=== PATIENT | female | born 1950 | race Caucasian/White ===

== ENCOUNTER 2018-04-21 07:09 | Emergency (ER) | payer OTHER, MEDICARE ==
[~2018-04-21] VITALS: Ht 167.6 cm; Wt 59.0 kg
[2018-04-21] MEDS ORDERED: ONDANSETRON 4 MG (ZOFRAN) ORAL DISSOLVE TAB ONE ×2 (07:32)
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
[2018-04-21] MEDS ORDERED: HYDROcodone/APAP 5 MG/325 MG (LORTAB) TAB PO ONE (07:45)
[2018-04-21] MEDS ORDERED: ONDANSETRON 8 MG (ZOFRAN) ORAL DISSOLVE TAB PO ONE (07:45)
[2018-04-21] MEDS ORDERED: AMIT25TA9 (08:08)
[2018-04-21] MEDS ORDERED: LEVO50TA6 (08:08)
[2018-04-21] MEDS ORDERED: CITA20TA9 (08:08)
[2018-04-21] MEDS ORDERED: OXYB5TAB9 (08:08)
[2018-04-21] MEDS ORDERED: MELO7.5T46 (08:08)
[2018-04-21] MEDS ORDERED: CALC-308 PO (08:10)
[2018-04-21] MEDS ORDERED: FERR-84 PO (08:10)
[2018-04-21] MEDS ORDERED: MULT-834 PO (08:11)
[2018-04-21] MEDS ORDERED: AMOX250C PO (08:14)
[2018-04-21] MEDS ORDERED: ESTR10TA9 VG (08:14)
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
[2018-04-21 09:24] VITALS: BP 173/74
== END 2018-04-21 09:15 | disposition home or self-care (01) ==
LOC: EDUNIT# 07:09 → ER FS 07:12
DX: S16.1XXA Strain of muscle, fascia and tendon at neck level, initial encounter (principal); S20.219A Contusion of unspecified front wall of thorax, initial encounter; S50.12XA Contusion of left forearm, initial encounter; Z88.2 Allergy status to sulfonamides; V49.40XA Driver injured in collision with unspecified motor vehicles in traffic accident, initial encounter
CPT/HCPCS: 71046; 72125; 73030; 73090; 93005

== ENCOUNTER 2018-06-14 10:53 | Outpatient (RCR) | payer MEDICARE, OTHER ==
[~2018-06-14 10:53] MED LIST: AMIT25TA9; AMOX250C PO; CALC-308 PO; CITA20TA9; ESTR10TA9 VG; FERR-84 PO; LEVO50TA6; MELO7.5T46; MULT-834 PO; OXYB5TAB9
== END 2018-06-14 11:57 | disposition home or self-care (01) ==
PROVIDERS: ATTEND Orthopaedic Surgery Orthopaedic Trauma
DX: S13.4XXA Sprain of ligaments of cervical spine, initial encounter (principal); V49.40XA Driver injured in collision with unspecified motor vehicles in traffic accident, initial encounter

== ENCOUNTER 2018-12-24 05:40 | Outpatient (CLI) | payer MEDICARE ==
[~2018-12-24] VITALS: Ht 167 cm; Wt 65.9 kg
[2018-12-24] MEDS ORDERED: AMIT25TA9 PO (11:57)
[2018-12-24] MEDS ORDERED: ESTR-44 TD (11:57)
[2018-12-24] MEDS ORDERED: LEVO50TA6 PO (11:57)
[2018-12-24] MEDS ORDERED: CYCL10TA9 PO (11:57)
[2018-12-24] MEDS ORDERED: CALC-308 PO (11:57)
[2018-12-24] MEDS ORDERED: MELO15TA14 PO (11:57)
[2018-12-24] MEDS ORDERED: CITA20TA12 PO (11:57)
[2018-12-24] MEDS ORDERED: OXYB5TAB9 PO (11:57)
== END 2018-12-24 11:59 | disposition home or self-care (01) ==
LOC: PREOP 05:40
PROVIDERS: ATTEND Surgery
DX: Z01.818 Encounter for other preprocedural examination (principal)

== ENCOUNTER 2018-12-31 09:14 | Day surgery (SDC) | payer MEDICARE, OTHER ==
[~2018-12-31] VITALS: Ht 167 cm; Wt 65.9 kg
[~2018-12-31 09:14] MED LIST changes: +AMIT25TA9 PO; +CITA20TA12 PO; +CYCL10TA9 PO; +ESTR-44 TD; +LEVO50TA6 PO; +MELO15TA14 PO; +OXYB5TAB9 PO
[2018-12-31] MEDS ORDERED: LACTATED RINGERS 1,000 ML IV ONE (09:39)
[2018-12-31] MEDS ORDERED: LACTATED RINGERS 1,000 ML IV STA (09:44)
[2018-12-31 09:55] VITALS: BP 121/72
[2018-12-31] MEDS ORDERED: ESTR10TA9 VG (11:00)
[2018-12-31] MEDS ORDERED: PROPOFOL INJECTION 50 ML IV ONE (11:50)
[2018-12-31] MEDS ORDERED: MIDAZOLAM 2 MG/2 ML (VERSED) VIAL ONE (11:50)
--- NOTE | 2018-12-31 12:04 | Progress Note-Pre Operative ---
Pre-Operative Progress Note H&P Reviewed The H&P was reviewed, patient examined and no changes noted. Time Seen by Provider: 12:02 Date H&P Reviewed: Dec 31, 2018 Time H&P Reviewed: 12:01 Pre-Operative Diagnosis: screening colonoscopy AMALIA WASHINGTON DO Dec 31, 2018 12:04 POS
[2018-12-31 12:30] VITALS: BP 144/67
--- NOTE | 2018-12-31 12:34 | Progress Note-Post Operative ---
Post-Operative Progess Note Surgeon (s)/Commercial Driver'S License Driver (s) Surgeon AMALIA WASHINGTON DO Commercial Driver'S License Driver: MISSAEL Oliver Pre-Operative Diagnosis screening colonoscopy Post-Operative Diagnosis int hemorrhoids Procedure & Operative Findings Date of Procedure 12/31/18 Procedure Performed/Findings colon Anesthesia Type IV sedation by [employer] Estimated Blood Loss Estimated blood loss (mL): none Specimens/Packing Specimens Removed none AMALIA WASHINGTON DO Dec 31, 2018 12:34 POS
[2018-12-31 12:35] VITALS: BP 169/72
--- NOTE | 2018-12-31 12:35 | Endoscopy Discharge Instruct ---
Endo Procedure/Findings Findings 1.: Internal Hemorrhoids Discharge Instructions - Activity: You might feel a little sleepy until tomorrow. This is due to the me dicine you received to relax you. Until tomorrow, you should: NOT drive a car, operate machinery or power tools. NOT drink any alcoholic beverages. NOT make any important decisions or sign importortant papers. Do not return to work until tomorrow, unless otherwise instructed. Resume previous activities tomorrow. Diet: Start by taking liquids. If you tolerate liquids, advance to solid food. make an appointment for one week 1.: Colonscopy in 10 years Notify Physician - If you experience excessive bleeding, unusual abdominal pain, fever, or chest pain, contact your doctor immediately. AMALIA WASHINGTON DO Dec 31, 2018 12:35 POS
[2018-12-31 13:05] VITALS: BP 148/98
--- NOTE | 2018-12-31 13:11 | Anesthesia-General Post-Op ---
MAC Patient Condition Mental Status/LOC: Same as Preop Cardiovascular: Satisfactory Nausea/Vomiting: Absent Respiratory: Satisfactory Pain: Controlled Complications: Absent Post Op Complications Complications None Follow Up Care/Instructions Patient Instructions None needed. Anesthesiology Discharge Order Discharge Order Patient is doing well, no complaints, stable vital signs, no apparent adverse anesthesia problems. No complications reported per nursing. TRAE RAIN CRNA Dec 31, 2018 13:11 POS
[2018-12-31 13:25] VITALS: BP 148/98
--- NOTE | 2018-12-31 19:05 | OPERATIVE REPORT ---
DATE OF SERVICE: 12/31/2018 PREOPERATIVE DIAGNOSIS: Screening colonoscopy. POSTOPERATIVE DIAGNOSIS: Internal hemorrhoids. PROCEDURE: Colonoscopy. SURGEON: Pancho Porter DO CARDIOTHORACIC ANESTHESIA TECHNICIAN: Mayra Loving MS3 SPECIMENS: None. BLOOD LOSS: None. FLUIDS: Per anesthesia. POSTOPERATIVE CONDITION: Stable. INDICATION FOR PROCEDURE: The patient is a 68-year-old female, who has never had a colonoscopy, needs one for screening. FINDINGS: The patient had some internal hemorrhoids, but no other obvious pathology. PROCEDURE NOTE: After informed consent was obtained, the patient was brought to the endoscopy suite and placed in bed in the left lateral decubitus position. She was administered IV sedation by the RIVET TESTER, who then monitored her vitals the entire time, heart rate, blood pressure and pulse ox and the scope was inserted, pushed all the way about 140 cm, able to get to the cecum, took a picture of the appendiceal orifice, noted the ileocecal valve and then slowly withdrew the scope, insufflating to look circumferentially at the venegas looking at the cecum, up the ascending colon to the hepatic flexure, then down the transverse colon to the splenic flexure, into the descending colon, down into the sigmoid and finally into the rectum, retroflexed the rectal vault, saw some minimal internal hemorrhoids. No other obvious pathology. Scope was removed. The patient tolerated the procedure, recovered in endoscopy suite. Job ID: [id number] DocumentID: [id number] Dictated Date: 12/31/2018 12:33:51 Ethical Hacker Date: 12/31/2018 19:04:26 Dictated By: PANCHO PORTER DO
== END 2018-12-31 13:25 | disposition home or self-care (01) ==
LOC: ENDO 09:14
PROVIDERS: ATTEND Surgery
DX: Z12.11 Encounter for screening for malignant neoplasm of colon (principal); K64.8 Other hemorrhoids; E03.9 Hypothyroidism, unspecified; I10 Essential (primary) hypertension; F41.9 Anxiety disorder, unspecified; Z88.2 Allergy status to sulfonamides; Z79.899 Other long term (current) drug therapy; Z87.891 Personal history of nicotine dependence; Z90.710 Acquired absence of both cervix and uterus; Z90.89 Acquired absence of other organs; Z80.0 Family history of malignant neoplasm of digestive organs; Z83.79 Family history of other diseases of the digestive system
CPT/HCPCS: G0105

== ENCOUNTER 2022-08-11 19:07 | Emergency (ER) | payer MEDICARE ==
[~2022-08-11] VITALS: Ht 165.1 cm; Wt 72.0 kg
[~2022-08-11 19:07] MED LIST changes: +CYCL10TA25 PO; -CYCL10TA9 PO; +OXYB5TAB13; +OXYB5TAB13 PO; -OXYB5TAB9; -OXYB5TAB9 PO
[2022-08-11] MEDS ORDERED: TETANUS,DIPTH,PERTUSS P/F (BOOSTRIX) 0.5 ML VIAL IM ONE (19:15)
[2022-08-11 19:34] LABS: BASOPHILS % (AUTO) 1 % (0-10); BILIRUBIN,URINE NEGATIVE (NEGATIVE); CLARITY,URINE CLEAR; COLOR,URINE YELLOW; EOSINOPHILS # (AUTO) 0.1 10^3/uL (0.0-0.3); EOSINOPHILS % (AUTO) 2 % (0-10); GLUCOSE, URINE (UA) NEGATIVE (NEGATIVE); HEMATOCRIT 43 % (35-52); HEMOGLOBIN 14.2 g/dL (11.5-16.0); KETONES,URINE NEGATIVE (NEGATIVE); LEUKOCYTE ESTERASE ,URINE NEGATIVE (NEGATIVE); LYMPHOCYTES # (AUTO) 0.9 10^3/uL (1.0-4.0); LYMPHOCYTES % (AUTO) 17 % (12-44); MEAN CORPUSCULAR HEMOGLOBIN 30 pg (25-34); MEAN CORPUSCULAR HGB CONC 33 g/dL (32-36); MEAN CORPUSCULAR VOLUME 90 fL (80-99); MEAN PLATELET VOLUME 9.4 fL (9.0-12.2); MONOCYTES # (AUTO) 0.5 10^3/uL (0.0-1.0); MONOCYTES % (AUTO) 10 % (0-12); NEUTROPHILS # (AUTO) 3.8 10^3/uL (1.8-7.8); NEUTROPHILS % (AUTO) 71 % (42-75); NITRITE,URINE NEGATIVE (NEGATIVE); PH,URINE 7.5 (5-9); PLATELET COUNT 218 10^3/uL (130-400); PROTEIN,URINE 1+ (NEGATIVE); WHITE BLOOD COUNT 5.4 10^3/uL (4.3-11.0)
[2022-08-11 19:44] LABS: BACTERIA,URINE FEW /HPF; RBC,URINE RARE /HPF; WBC,URINE RARE /HPF
[2022-08-11 19:53] LABS: AMPHETAMINE SCREEN, URINE NEGATIVE (NEGATIVE); BARBITURATE SCREEN URINE NEGATIVE (NEGATIVE); BENZODIAZEPINES SCREEN URINE POSITIVE (NEGATIVE); CANNABINOID SCREEN, URINE NEGATIVE (NEGATIVE); COCAINE SCREEN URINE NEGATIVE (NEGATIVE); METHADONE STAT NEGATIVE (NEGATIVE); OPIATE SCREEN URINE NEGATIVE (NEGATIVE); OXYCODONE STAT NEGATIVE (NEGATIVE); PROPOXYPHENE STAT NEGATIVE (NEGATIVE); TRICYCLIC ANTIDEPRESSANTS SCRE NEGATIVE (NEGATIVE)
[2022-08-11 19:59] LABS: ALANINE AMINOTRANSFERASE 37 U/L (0-55); ALBUMIN 4.4 GM/DL (3.2-4.5); ALKALINE PHOSPHATASE 61 U/L (40-136); BILIRUBIN,TOTAL 0.6 MG/DL (0.1-1.0); BUN/CREATININE RATIO 15; CALCIUM 9.5 MG/DL (8.5-10.1); CARBON DIOXIDE 23 MMOL/L (21-32); CHLORIDE 105 MMOL/L (98-107); GFR ESTIMATED 61; GLUCOSE 127 MG/DL (70-105); POTASSIUM 3.8 MMOL/L (3.6-5.0); SALICYLATE < 5.0 MG/DL (5.0-20.0); SODIUM 138 MMOL/L (135-145)
[2022-08-11 20:03] LABS: ACETAMINOPHEN < 10 UG/ML (10-30)
[2022-08-11] MEDS ORDERED: ACETAMINOPHEN 500 MG TAB (TYLENOL) PO ONE (22:15)
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
[2022-08-12] MEDS ORDERED: IBUPROFEN 800 MG (MOTRIN) TAB PO ONE (00:15)
[2022-08-12] MEDS ORDERED: DONEPEZIL 10 MG (ARICEPT) TAB PO SCH (03:00)
[2022-08-12] MEDS ORDERED: ACETAMINOPHEN 500 MG TAB (TYLENOL) PO ONE (08:15)
[2022-08-12 10:59] VITALS: BP 136/74
== END 2022-08-12 11:04 ==
LOC: EDUNIT# 19:07 → ER 19:09
DX: S61.512A Laceration without foreign body of left wrist, initial encounter (principal); S61.511A Laceration without foreign body of right wrist, initial encounter; F41.9 Anxiety disorder, unspecified; R25.2 Cramp and spasm; Z23 Encounter for immunization; Z20.822 Contact with and (suspected) exposure to COVID-19; X78.8XXA Intentional self-harm by other sharp object, initial encounter
CPT/HCPCS: 80053; 80306; 81000; 84443; 85025; 87636; 93005; 99284; G0480 ×3; 36415; 80320; 80329; 90715

== ENCOUNTER 2022-11-16 19:26 | Emergency (ER) | payer OTHER, MEDICARE ==
[~2022-11-16] VITALS: Ht 163 cm; Wt 64.0 kg
[2022-11-16] MEDS ORDERED: morphine INJ 10 MG/ML 1ML (SYR OR VIAL) IVP STA (19:33)
[2022-11-16] MEDS ORDERED: morphine INJ 4 MG/ML 1 ML (VIAL/SYRINGE) ONE (19:33)
[2022-11-16 19:39] LABS: BASOPHILS % (AUTO) 1 % (0-10); EOSINOPHILS # (AUTO) 0.2 10^3/uL (0.0-0.3); EOSINOPHILS % (AUTO) 3 % (0-10); HEMATOCRIT 39 % (35-52); HEMOGLOBIN 12.9 g/dL (11.5-16.0); LYMPHOCYTES # (AUTO) 1.9 10^3/uL (1.0-4.0); LYMPHOCYTES % (AUTO) 40 % (12-44); MEAN CORPUSCULAR HEMOGLOBIN 31 pg (25-34); MEAN CORPUSCULAR HGB CONC 34 g/dL (32-36); MEAN CORPUSCULAR VOLUME 92 fL (80-99); MEAN PLATELET VOLUME 9.8 fL (9.0-12.2); MONOCYTES # (AUTO) 0.6 10^3/uL (0.0-1.0); MONOCYTES % (AUTO) 12 % (0-12); NEUTROPHILS % (AUTO) 44 % (42-75); PLATELET COUNT 205 10^3/uL (130-400); WHITE BLOOD COUNT 4.6 10^3/uL (4.3-11.0)
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
[2022-11-16] MEDS ORDERED: Tetanus/Diphtheria/Pertussis (Acell) ADULT Vaccine 0.5 ML IM ONE (19:45)
[2022-11-16 19:48] LABS: POTASSIUM 3.8 MMOL/L (3.6-5.0)
[2022-11-16 19:49] LABS: CALCIUM 9.1 MG/DL (8.5-10.1); INR 0.9 (0.8-1.4)
[2022-11-16 19:50] LABS: TOTAL PROTEIN 6.2 GM/DL (6.4-8.2)
[2022-11-16 19:52] LABS: BILIRUBIN,TOTAL 0.4 MG/DL (0.1-1.0)
[2022-11-16 19:54] LABS: CREATININE SERUM 1.1 MG/DL (0.60-1.30)
[2022-11-16] MEDS ORDERED: ACHD5005 PO (20:23)
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
[2022-11-16 20:45] VITALS: BP 138/69
== END 2022-11-16 20:45 | disposition home or self-care (01) ==
LOC: EDUNIT# 19:26 → ER 19:28
DX: S51.811A Laceration without foreign body of right forearm, initial encounter (principal); S80.02XA Contusion of left knee, initial encounter; S80.01XA Contusion of right knee, initial encounter; Z23 Encounter for immunization; W26.8XXA Contact with other sharp object(s), not elsewhere classified, initial encounter; Y92.812 Truck as the place of occurrence of the external cause
CPT/HCPCS: 36415; 73090; 73562; 80053; 85025; 85610; 85730; 90715